=== PATIENT | female | born 1965 | race American Indian/Alaskan Native ===

== ENCOUNTER 2019-07-22 08:38 | Emergency (ER) | payer BC ==
[2019-07-22 08:56] VITALS: BP 145/91
[2019-07-22] MEDS ORDERED: KETOROLAC 30 MG/1 ML INJ IV ONE (09:40)
[2019-07-22] MEDS ORDERED: SODIUM CHLORIDE 0.9% 1000 ML 1,000 ML IV ONE (09:40)
--- NOTE | 2019-07-22 09:47 | Emergency Department Report ---
ED Abdominal Pain HPI - General Chief Complaint: Abdominal Pain Stated Complaint: BACK PAIN/UTI Time Seen by Provider: 07/22/19 09:26 Source: patient Mode of arrival: Ambulatory Limitations: No Limitations - History of Present Illness Initial Comments: 54 yo F w/ hx hypothyroidism presents to ED with left flank pain, urinary frequency x 4 days. Pt states she was seen by her physician 2 days ago and diagnosed with a UTI. States was prescribed cipro and has been taking that for the last 2 days. Pt reports there was also an xray, not CT, done that was negative for kidney stone. Pt reports nausea, hematuria. Reports radiation of pain into LLQ and left groin. MD Complaint: flank pain -: days(s) (4) Location: L flank Radiation: LLQ Severity: moderate Quality: sharp Consistency: intermittent Improves With: nothing Worsens With: nothing Associated Symptoms: nausea, hematuria. denies: vomiting, fever, dysuria - Related Data Previous Rx's Medication Instructions Recorded Last Taken Type Naproxen [Naprosyn] 500 mg PO BID #20 tablet 07/22/19 Unknown Rx Allergies Allergy/AdvReac Type Severity Reaction Status Date / Time No Known Allergies Allergy Verified 07/22/19 08:44 ED Review of Systems ROS: Stated complaint: BACK PAIN/UTI Other details as noted in HPI Comment: All other systems reviewed and negative Constitutional: denies: chills, fever Gastrointestinal: abdominal pain, nausea. denies: vomiting, diarrhea Genitourinary: frequency, hematuria Musculoskeletal: back pain ED Past Medical Hx - Past Medical History Previous Medical History?: No - Surgical History Past Surgical History?: No - Social History Smoking Status: Never Smoker Substance Use Type: Alcohol - Medications Home Medications: Home Medications Medication Instructions Recorded Confirmed Last Taken Type Naproxen [Naprosyn] 500 mg PO BID #20 tablet 07/22/19 Unknown Rx ED Physical Exam - General Limitations: No Limitations General appearance: alert, in no apparent distress - Head Head exam: Present: atraumatic, normocephalic - Eye Eye exam: Present: normal appearance, EOMI - ENT ENT exam: Present: mucous membranes moist - Neck Neck exam: Present: normal inspection - Respiratory Respiratory exam: Present: normal lung sounds bilaterally. Absent: respiratory distress - Cardiovascular Cardiovascular Exam: Present: regular rate, normal rhythm - GI/Abdominal GI/Abdominal exam: Present: soft, tenderness (suprapubic and LLQ tenderness). Absent: distended - Extremities Exam Extremities exam: Present: normal inspection - Back Exam Back exam: Present: CVA tenderness (L) - Neurological Exam Neurological exam: Present: alert, oriented X3 - Psychiatric Psychiatric exam: Present: normal affect, normal mood - Skin Skin exam: Present: warm, dry, intact, normal color ED Course Vital Signs 07/22/19 07/22/19 08:46 08:56 Temperature 97.7 F 97.7 F Pulse Rate 76 76 Respiratory 18 18 Rate Blood Pressure 145/91 145/91 O2 Sat by Pulse 97 96 Oximetry ED Medical Decision Making - Lab Data Result diagrams: 07/22/19 10:40 07/22/19 10:40 - Radiology Data Radiology results: report reviewed, image reviewed - Medical Decision Making Pt has been taking cipro for 2 days. She is currently afebrile, WBCs normal. BMP normal. UA unremarkable. CT negative for any acute findings, only possible small left renal cyst, which pt has been informed of. Pt advised to continue her antibiotics. Prescription given. Outpt f/u advised. Return precautions given. - Differential Diagnosis UTI, pyelonephritis, kidney stone Critical care attestation.: If time is entered above; I have spent that time in minutes in the direct care of this critically ill patient, excluding procedure time. ED Disposition Clinical Impression: Flank pain, Renal cyst, left Disposition: DC-01 TO HOME OR SELFCARE Is pt being admited?: No Condition: Stable Instructions: Flank Pain (ED) Prescriptions: Naproxen [Naprosyn] 500 mg PO BID #20 tablet Referrals: PRIMARY CARE, [Primary Care Provider] - 3-5 Days Time of Disposition: 11:35
[2019-07-22 10:14] LABS: Bilirubin,Urine NEG (Negative); Blood,Urine NEG (Negative); Color,Urine Yellow (Yellow); Protein,Urine <15 mg/dL mg/dL (Negative); Urobilinogen,Urine < 2.0 mg/dL (<2.0)
[2019-07-22] MEDS ORDERED: ONDANSETRON 4 MG/2 ML INJ IV ONE (10:20)
[2019-07-22] MEDS ORDERED: ONDANSETRON 4 MG/2 ML INJ ONE (10:21)
--- NOTE | 2019-07-22 10:39 | Cat Scan Report ---
CT abdomen pelvis wo con INDICATION: L flank pain. TECHNIQUE: All CT scans at this location are performed using the following dose modulation technique: Automated exposure control. CONTRAST: None. COMPARISON: None available. CT ABDOMEN: Basilar atelectasis is mild. Evaluation the parenchymal organs demonstrates a probable subcentimeter left renal cysts. Negative fo r renal inflammation or obstruction. The remaining parenchymal organs are unremarkable. Negative for abdominal mass, fluid or inflammation. The bowel is not dilated or thickened. A small fa t-containing umbilical hernia is small. CT PELVIS: Negative for pelvic mass, fluid or inflammation. IMPRESSION: 1. Negative for obstruction or localized inflammation. 2. Small fat-containing umbilical hernia. 3. Probable small left renal cyst. Signer Name: Erasmo Maldonado MD Signed: 07/22/2019 10:34 AM Workstation Name: [id number]
[2019-07-22 10:53] LABS: Basophils % (Auto) 0.5 % (0.0-1.8); Eosinophils % (Auto) 0.7 % (0.0-4.3); Hematocrit 42.9 % (30.3-42.9); Hemoglobin 14.5 gm/dl (10.1-14.3); Lymphocytes # (Auto) 1.2 K/mm3 (1.2-5.4); Lymphocytes % (Auto) 18.4 % (13.4-35.0); Mean Corpuscular HGB Conc 34 % (30-34); Mean Corpuscular Volume 91 fl (79-97); Monocytes # (Auto) 0.4 K/mm3 (0.0-0.8); Monocytes % (Auto) 6.1 % (0.0-7.3); Platelet Count 235 K/mm3 (140-440); Red Cell Distribution Width 12.9 % (13.2-15.2)
[2019-07-22 11:29] LABS: BUN/Creatinine Ratio 24; Blood Urea Nitrogen 17 mg/dL (7-17); Calcium 9.1 mg/dL (8.4-10.2); Hemolysis Index 17
== END 2019-07-22 12:00 | disposition home or self-care (01) ==
LOC: ED 08:38
DX: N28.1 Cyst of kidney, acquired (principal); Z79.899 Other long term (current) drug therapy
CPT/HCPCS: 36415; 74176; 80048; 81001; 85025; 96374; 96375; 99284; J1885; J2405; J7030